=== PATIENT | male | born 1945 | race Caucasian/White ===

== ENCOUNTER 2016-09-08 10:00 | Emergency (ER) | payer MEDICARE, OTHER ==
[2016-09-08] MEDS ORDERED: Bacitracin Zinc 1 Packet ONE (10:29)
== END 2016-09-08 10:38 | disposition home or self-care (01) ==
LOC: BURERS 10:00
DX: S60.453A Superficial foreign body of left middle finger, initial encounter (principal); J45.909 Unspecified asthma, uncomplicated; F17.220 Nicotine dependence, chewing tobacco, uncomplicated; W45.8XXA Other foreign body or object entering through skin, initial encounter
CPT/HCPCS: 10120; J2001

== ENCOUNTER 2019-03-22 06:55 | Emergency (ER) | payer MEDICARE, OTHER ==
[2019-03-22] MEDS ORDERED: Ketorolac Tromethamine 60 MG/2 ML VIAL ONE (07:13)
== END 2019-03-22 07:28 | disposition home or self-care (01) ==
LOC: BURERS 06:55
DX: M10.9 Gout, unspecified (principal); J45.909 Unspecified asthma, uncomplicated; F17.220 Nicotine dependence, chewing tobacco, uncomplicated; Z79.899 Other long term (current) drug therapy
CPT/HCPCS: 96372; 99283; J1885